=== PATIENT | male | born 1950 | race Caucasian/White ===

== ENCOUNTER 2017-01-28 18:21 | Observation (INO) | payer MEDICARE, OTHER ==
[~2017-01-28] VITALS: Ht 170.2 cm; Wt 78.2 kg
[2017-01-28 20:04] LABS: HEMOGLOBIN 13.2 gm/dl (14.0-17.5); RED BLOOD COUNT 4.62 M/UL (4.20-5.50); WHITE BLOOD COUNT 8.1 K/UL (4.5-11.0)
[2017-01-29] MEDS ORDERED: ADVAIR 250-501 EACH INH (10:36)
[2017-01-29] MEDS ORDERED: ASPIRIN325 MG PO (10:36)
[2017-01-29] MEDS ORDERED: FIORINAL 50-321 EACH PO (10:37)
[2017-01-29] MEDS ORDERED: DURAGESIC 50 MCG1 EA TD (10:38)
[2017-01-29] MEDS ORDERED: CRESTOR20 MG PO (10:38)
[2017-01-29] MEDS ORDERED: FLONASE 0.05% N16 GM (10:39)
[2017-01-29] MEDS ORDERED: NEURONTIN 300300 MG PO (10:40)
[2017-01-29] MEDS ORDERED: LOPRESSOR50 MG PO (10:40)
[2017-01-29] MEDS ORDERED: FOLIC ACID 1 MG1 MG PO (10:40)
[2017-01-29] MEDS ORDERED: MOVANTIK25 MG PO (10:41)
[2017-01-29] MEDS ORDERED: PREVACID30 MG PO (10:42)
[2017-01-29] MEDS ORDERED: OXYCONTIN10 MG PO (10:42)
[2017-01-29] MEDS ORDERED: PLAVIX 75 MG TA75 MG PO (10:42)
[2017-01-29] MEDS ORDERED: TRICOR145 MG PO (10:43)
[2017-01-29] MEDS ORDERED: FLOMAX0.4 MG PO (10:43)
[2017-01-29] MEDS ORDERED: VENTOLIN HFA 66.7 GM INH (10:44)
[2017-01-29] MEDS ORDERED: VITAMIN D400 UNI1 PO (10:44)
[2017-01-29] MEDS ORDERED: ZESTRIL5 MG PO (10:45)
[2017-01-30] MEDS ORDERED: ASPIR 8181 MG PO (17:15)
== END 2017-01-30 17:50 | disposition home or self-care (01) ==
LOC: ER1 18:21 → ZEROF 23:20 → MED SURG 4 01-29 15:16
PROVIDERS: Family Medicine; ADMIT Internal Medicine
DX: R47.81 Slurred speech (principal); R20.0 Anesthesia of skin; R27.8 Other lack of coordination; N17.9 Acute kidney failure, unspecified; I25.10 Atherosclerotic heart disease of native coronary artery without angina pectoris; Z95.5 Presence of coronary angioplasty implant and graft; J44.9 Chronic obstructive pulmonary disease, unspecified; I10 Essential (primary) hypertension; E78.5 Hyperlipidemia, unspecified; N40.0 Benign prostatic hyperplasia without lower urinary tract symptoms; G89.4 Chronic pain syndrome; Z79.891 Long term (current) use of opiate analgesic; M51.36 Other intervertebral disc degeneration, lumbar region; Z88.2 Allergy status to sulfonamides; Z88.8 Allergy status to other drugs, medicaments and biological substances; Z91.041 Radiographic dye allergy status; Z82.3 Family history of stroke; Z82.49 Family history of ischemic heart disease and other diseases of the circulatory system; Z79.82 Long term (current) use of aspirin; Z79.02 Long term (current) use of antithrombotics/antiplatelets; Z79.899 Other long term (current) drug therapy; Z87.891 Personal history of nicotine dependence; J60 Coalworker's pneumoconiosis; Z86.73 Personal history of transient ischemic attack (TIA), and cerebral infarction without residual deficits; R42 Dizziness and giddiness
CPT/HCPCS: ECHO; 36415; 70450; 70544; 70551; 71010; 80048; 80053; 80061; 82550; 82553; 83036; 83874; 84484; 85025; 93005; 93306; 93880; 94640; 94664; 99285; G0378; J1644